=== PATIENT | male | born 1955 | race Caucasian/White ===

== ENCOUNTER 2021-02-21 05:53 | Outpatient (CLI) | payer OTHER | END 2021-02-21 05:54 | disposition critical access hospital (66) | LOC: EMS 05:53 | DX: R42 Dizziness and giddiness (principal) | CPT/HCPCS: A0425; A0427 ==

== ENCOUNTER 2021-02-21 06:09 | Emergency (ER) | payer OTHER ==
[2021-02-21] MEDS ORDERED: SODIUM CHLORIDE 0.9% 1,000 ML IV STA (07:25)
[2021-02-21] MEDS ORDERED: ONDANSETRON 4 MG/2 ML VIAL IVP STA (07:37)
[2021-02-21] MEDS ORDERED: MECLIZINE 12.5 MG TABLET PO STA (07:37)
[2021-02-21] MEDS ORDERED: diazePAM INJ 5 MG/ML SYRINGE IVP STA (07:37)
--- NOTE | 2021-02-21 07:40 | ED Physician Documentation ---
History of Present Illness - Stated complaint Stated Complaint: VERTIGO - Chief complaint Chief Complaint: General - History obtained from History obtained from: Patient - Additonal information Additional information: Comes emergency department chief complaint of exacerbation of vertigo since yesterday evening. He states that he has a history of benign positional vertigo and that his last episode was 3 weeks ago. He states that he generally takes meclizine for this and it helps. However, last night, he began to feel dizzy again and so he laid down, which usually helps. However, this time it did not help and he actually became so dizzy that he vomited. Patient states he was not able to take his meclizine because of vomiting. He feels little better just lying still in bed right now but if he sits up he begins to feel a spinning sensation again. No other complaints at this time. He states his symptoms are very much consistent with prior episodes of his positional vertigo. Review of Systems Ten Systems: 10 systems reviewed and negative Constitutional: reports: Reviewed and negative Eyes: reports: Reviewed and negative Ears: reports: Reviewed and negative Nose: reports: Reviewed and negative Throat: reports: Reviewed and negative Cardiac: reports: Reviewed and negative Respiratory: reports: Reviewed and negative GI: reports: Reviewed and negative : reports: Reviewed and negative Skin: reports: Reviewed and negative Musculoskeletal: reports: Reviewed and negative Neurologic: reports: Other (vertigo) Psychiatric: reports: Reviewed and negative Endocrine: reports: Reviewed and negative Immunocompromised: reports: Reviewed and negative PD PAST MEDICAL HISTORY - Past Medical History Past Medical History: Yes Cardiovascular: None Respiratory: Sleep apnea, CPAP use Neuro: Other Endocrine/Autoimmune: HyPOthyroidism GI: None : None HEENT: None Psych: None Musculoskeletal: None Derm: None Other Past Medical History: vertigo - Past Surgical History Past Surgical History: Yes General: Appendectomy, Colonoscopy - Present Medications Home Medications: Ambulatory Orders Medication Instructions Recorded Confirmed Aspirin 81 mg PO 09/01/18 Cyanocobalamin (Vitamin B-12) 1,000 mcg PO 09/01/18 [Vitamin B-12] Levothyroxine Sodium [Synthroid] 88 mcg PO 09/01/18 Meclizine HCl [Motion Sickness] 25 mg PO Q6HR PRN #20 tablet 02/21/21 Ondansetron Odt [Zofran] 4 mg TL Q6H PRN #10 tablet 02/21/21 - Allergies Allergies/Adverse Reactions: Allergies Allergy/AdvReac Type Severity Reaction Status Date / Time No Known Drug Allergies Allergy Verified 09/01/18 13:55 - Social History Does the pt smoke?: No Smoking Status: Never smoker PD ED PE NORMAL - Vitals Vital signs reviewed: Yes - General General: Alert and oriented X 3, No acute distress, Well developed/nourished - HEENT HEENT: Atraumatic, PERRL, EOMI, Moist mucous membranes - Neck Neck: Supple, no meningeal sign - Cardiac Cardiac: RRR, No murmur - Respiratory Respiratory: No respiratory distress, Clear bilaterally - Abdomen Abdomen: Soft, Non tender, Non distended - Derm Derm: Warm and dry - Extremities Extremities: No deformity, No edema - Neuro Neuro: Alert and oriented X 3, 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 The patient was not feeling completely better after treatment but did demonstrate some improvement and was able to ambulate to the bathroom slowly but otherwise without difficulty. I discussed with the patient that we will refill his meclizine and I will also give him prescription for Zofran. The vertigo to some degree is going to have to resolve on its own and the patient is advised regarding symptomatic treatment at home. We have discussed the usual indications for return. Departure - Departure Disposition: 01 Home, Self Care Clinical Impression: Vertigo Condition: Stable Instructions: ED BPV Vertigo Follow-Up: James Juárez MD [Physician No Access] - Prescriptions: Meclizine HCl [Motion Sickness] 25 mg PO Q6HR PRN #20 tablet PRN Reason: Dizziness Ondansetron Odt [Zofran] 4 mg TL Q6H PRN #10 tablet PRN Reason: Nausea / Vomiting Comments: Please take the nausea medicine and the meclizine to help with your vertigo. It is probably best if you take it regularly for the next couple of days to help prevent further vertigo. Please follow-up with ear nose throat specialist if you continue to have severe problems, to see if there is anything further they can do to help with your condition. Forms: Activity restrictions Discharge Date/Time: 02/21/21 09:55
[2021-02-21 10:02] VITALS: BP 142/86
== END 2021-02-21 09:55 | disposition home or self-care (01) ==
LOC: EDUNIT# → ED 06:09
DX: R42 Dizziness and giddiness (principal); R11.10 Vomiting, unspecified; Z79.82 Long term (current) use of aspirin
CPT/HCPCS: 96361; 96374; 99283; 99284; A9270

== ENCOUNTER 2022-01-07 15:17 | Outpatient (CLI) | payer OTHER ==
[2022-01-07 16:27] VITALS: BP 131/77
--- NOTE | 2022-01-07 16:27 | SLEEP CARE CONSULTATION ---
Information from patient questionnaire entered by Ester Holland MA. I have reviewed and concur with the information entered by Estre Holland MA. This document represents the service I personally performed and the decisions made by , Sanjuana Forman ARNP. 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) Accompanied by: Spouse Chief Complaint: reports: Other (needs supplies, new machine - malfunctioning) Date of Onset: diagnosed in 2012 Usual bedtime: 1900 Time it takes to fall asleep: 30 MINUTES Snores at night: Yes Observed to quit breathing while asleep: Yes Sleeps alone due to snoring: No Number of times waking at night: 1-2 Reasons for waking at night: reports: Bathroom, Other Toss, Turn, or Twitch while sleeping: Yes Recalls having dreams: Yes Usually gets out of bed at: 0700 Feels refreshed in the morning: Yes Morning headache: No Sleepy or fatigued during the day: No Ever fallen asleep while driving: No Takes day naps: Yes Dreams during day naps: No Prior sleep studies: Yes Year and Where: [facility] [place], Type of Sleep Study: Polysomnography Additional HPI information: CALI VILLA was previously diagnosed to have unknown, AHI unknown, sleep apnea-hypopnea syndrome and comes in today with spouse to establish care for CPAP therapy. - Parasomnia Symptoms Ever been unable to move upon waking from sleep: No Walks in sleep: No Talks in sleep: No Ever acted out dreams in sleep: No Ever felt weak in the knees when startled or emotional: No Bothered by creepy, crawly, restless sensations in legs: Yes Problems with memory or concentration: Yes CPAP Compliance Data - Data Reviewed with Patient Average duration of nightly device use: 6 hours 12 minutes Compliance rate %: 75 (360 days; 08/2017-08/2018) Current pressure setting (cmH2O): 8-12 Average residual AHI: 2.3 Central apnea: 0.6 Obstructive apnea: 1.0 Average large leak: 34.9 L/min Compliance data discussion: He is using a full face Mirage Quattro, size medium. He is using [employer] for his supplies without any issues. He has a ResMed CPAP. He states it is his original machine that he got in 2013 and it will occasionally shut off during the night. We tried to get his data and the SD card only held information to 2019. There was no other information available from the machine. Subjective Patient concerns: reports: dry mouth, nose, throat (occasionally). denies: aerophagia, mask discomfort, air blowing in eyes, mask leak noise, condensation in mask/hose, nasal congestion, epistaxis, other Observed to snore while using device: No Current pressure setting perceived as: comfortable On therapy, patient: reports: sleeping better, awakening more refreshed, being more awake and alert during the day, more rested overall. denies: drowsiness while driving Initial Berkey Sleepiness Scale score: 9 (01/07/2022) Past Medical History Past Medical History: reports: Hypothyroidism, Other (high cholesterol) Social History The patient's occupation is a [employer]. Patient is and lives in [place]. Have you smoked in the past 12 months: No Alcohol use: Yes Alcohol amount and frequency: 2 X DAILY Caffeine use: Yes Caffeine amount and frequency: 2 X DAILY Family History Family history of sleep disordered breathing: Yes Family Hx Sleep Apnea: Sibling: Snoring, Sleep apnea - Treated Allergies and Home Medications Known drug allergies: Yes Drug allergies reviewed: Yes (NKDA) Home medication list reviewed: Yes Allergy and home medication list: Allergies No Known Drug Allergies Allergy (Verified 09/01/18 13:55) Medications: Synthroid 125 mcg, daily Atorvastatin 40 mg, daily Fish oil 1200 mg daily B12 5000 mg daily Review of Systems Weight gain over past 5 years: 10 Cardiovascular: reports: palpitations. denies: high blood pressure Gastrointestinal: denies: heartburn Neurological: reports: headaches, other (occasional dizziness) Ear/Nose/Throat: reports: nasal congestion, sinus problems, dry mouth/throat Endocrine: reports: thyroid disease Physical Exam Vital signs obtained and entered by: DOT BETANCOURT Blood Pressure: 131/77 (RESP 20, PULSE 84, RIGHT) Heart Rate: 83 O2 Saturation: 97 Height: 5 ft 10 in Weight: 235 lb Body Mass Index: 33.7 BMI Classification: Obese Neck circumference: 17 (NCHES) Heart: regular rate and rhythm Lungs: clear bilaterally Impression and Plan 1. Obstructive Sleep Apnea-Hypopnea Syndrome, unknown, with good treatment compliance and good apnea control. On CPAP therapy, the patient has better sleep quality and is more rested overall. Patient has been using [employer]. His current ResMed machine was last updated in 2013 and it is starting to malfunction. It is turning off during the night occasionally and it says it is not communicating so we were unable to get current compliance information. We are also trying to obtain his last sleep study from [facility]. As soon as we have a copy of his last sleep study, I will order him a new CPAP. The patients CPAP is over 5 years old and of reasonable use. The new CPAPs also have a better humidity system which could assist control of patients dryness symptoms. A DWO prescription will be made. Compliance guidelines for new device and follow up discussed. Patient and his voiced understanding. Patient's apnea severity and rationale for treatment to reduce apnea, improve sleep quality and reduce cardiovascular and cerebrovascular events was reviewed. * Continue auto CPAP pressure at 8-12 cmH2O * Update device * Update supplies as needed * Notify me if snoring with mask or feeling that the pressure is too much or too little * Attempt to lose weight * Call this office if any problems using CPAP * Return for follow up one month after obtaining new device, or sooner if concerns arise Counseling Topics: Spare mask, Weight loss health impact Visit Type: In Office Other Participants: Spouse/Significant Other Time Spent with Patient (minutes): 34 Provider Statement: I spent 100% of the Face to Face Visit with the patient with greater than 50% spent counseling the patient and coordination of care.
== END 2022-01-07 15:18 | disposition home or self-care (01) ==
LOC: SC 15:17
PROVIDERS: ATTEND Nurse Practitioner Family
DX: G47.33 Obstructive sleep apnea (adult) (pediatric) (principal); E66.9 Obesity, unspecified; Z68.33 Body mass index [BMI] 33.0-33.9, adult
CPT/HCPCS: 99203; 99212